=== PATIENT | female | born 1990 | race Caucasian/White ===

== ENCOUNTER 2016-12-08 07:05 | Emergency (ER) | payer MEDICAID ==
[~2016-12-08] VITALS: Ht 147.3 cm; Wt 49.0 kg
[~2016-12-08 07:05] MED LIST: PREN-39 PO
[2016-12-08 07:08] VITALS: Ht 147.3 cm; Wt 49.0 kg
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
[2016-12-08] MEDS ORDERED: IBUP400T22 PO (08:21)
[2016-12-08] MEDS ORDERED: OFLO5DRO7 LEFT EAR (08:24)
[2016-12-08] MEDS ORDERED: AZIT250T94 PO (08:24)
[2016-12-08] MEDS ORDERED: OFLO5DRO7 RIGHT EAR (08:24)
== END 2016-12-08 08:33 | disposition home or self-care (01) ==
LOC: FTE 07:05
DX: S69.91XA Unspecified injury of right wrist, hand and finger(s), initial encounter (principal); H66.001 Acute suppurative otitis media without spontaneous rupture of ear drum, right ear; Y08.89XA Assault by other specified means, initial encounter
CPT/HCPCS: 29130; 73140; Z7502

== ENCOUNTER 2017-02-23 22:03 | Emergency (ER) | payer SELFPAY ==
[~2017-02-23] VITALS: Ht 157.5 cm; Wt 52.0 kg
[~2017-02-23 22:03] MED LIST changes: +AZIT250T94 PO; +IBUP400T22 PO; +OFLO5DRO7 LEFT EAR
[2017-02-23 22:07] VITALS: Ht 157.5 cm; Wt 52.0 kg
[2017-02-26] MEDS ORDERED: HYDR-906 PO (20:56)
[2017-02-26] MEDS ORDERED: CIPR500T4 PO (20:56)
[2017-02-26] MEDS ORDERED: IBUP400T22 PO (20:56)
== END 2017-02-24 00:21 | disposition left against medical advice (07) ==
LOC: EDBD → E/R 22:03 → MERGE 22:03 → E/R 02-24 00:21
DX: Z53.21 Procedure and treatment not carried out due to patient leaving prior to being seen by health care provider (principal)

== ENCOUNTER 2017-09-06 14:01 | Emergency (ER) | END 2017-09-06 16:01 | disposition home or self-care (01) ==

== ENCOUNTER 2017-09-11 19:57 | Emergency (ER) | END 2017-09-11 20:15 | disposition home or self-care (01) ==

== ENCOUNTER 2017-10-16 09:24 | Emergency (ER) | END 2017-10-16 13:27 | disposition home or self-care (01) ==

== ENCOUNTER 2017-12-03 14:07 | Emergency (ER) | END 2017-12-03 17:49 | disposition left against medical advice (07) ==